=== PATIENT | male | born 1955 | race Caucasian/White ===

== ENCOUNTER 2022-06-23 08:24 | Outpatient (CLI) | payer BC ==
[2022-06-23 08:59] LABS: #Basophils 0.1 10x3/uL (0.0-0.2); #Eosinphils 0.3 10x3/uL (0.0-0.5); #Monocytes 0.6 10x3/uL (0.0-1.1); #Neutrophils 3.7 10x3/uL (1.5-8.4); %Basophils 0.8 % (0.0-2.0); %Eosinophils 5.6 % (0.0-6.0); %Lymphocytes 20.7 % (18.0-47.0); %Monocytes 9.6 % (0.0-10.0); %Neutrophils 62.8 % (40.0-75.0); Hemoglobin 14.1 g/dL (13.5-17.5); Mean Corpuscular HGB CONC 33.8 g/dL (32.0-36.0); Mean Corpuscular Hemoglobin 32.7 pg (27.0-33.0); Mean Corpuscular Volume 96.8 fl (81.2-95.1); Mean Platelet Volume 9.3 fl (7.4-10.4); Platelet Count 254 10x3/uL (150-450); RBC Distribution Width 11.8 % (11.5-14.5); Red Blood Cell (RBC) Count 4.31 10x6/uL (4.32-5.72); White Blood Cell (WBC) Count 5.9 10x3/uL (3.5-10.5)
[2022-06-23 09:20] LABS: ALT (SGPT) 17 U/L (8-55); AST (SGOT) 16 U/L (5-34); Albumin 4.4 g/dL (3.4-4.8); Alkaline Phosphatase 47 U/L (40-110); Anion Gap 15 mmol/L (10-20); BUN (Urea Nitrogen) 16 mg/dL (8.4-25.7); Bilirubin, Total 0.6 mg/dL (0.2-1.2); Calc. Creatinine Clearance 0 mL/min (70-130); Calcium 9.6 mg/dL (7.8-10.44); Carbon Dioxide 30 mmol/L (23-31); Cardiac Risk 2.4 (Less than 4.5); Chloride 100 mmol/L (98-107); Cholesterol 163 mg/dl (< 200 Desired); Estimated GFR 82; Globulin 2.9 g/dL (2.4-3.5); Glucose 108 mg/dL (80-115); HDL Cholesterol 68 mg/dL (>60 Neg Risk); LDL Cholesterol, Calculated 81 mg/dL; Potassium 4.1 mmol/L (3.5-5.1); Protein, Total 7.3 g/dL (5.8-8.1); Sodium 141 mmol/L (136-145); Triglycerides 68 mg/dL (Less than 150)
[2022-06-23 10:06] LABS: Bilirubin Neg (Negative); Blood, Urine Negative (Negative); Clarity Clear (Clear); Glucose, Urine (Dipstick) Normal (Negative); Ketone, Urine Negative (Negative); Leukocyte Negative (Negative); Nitrite Negative (Negative); Protein, Urine (Dipstick) 15 mg/dl (Neg-Trace); Specific Gravity, Urine 1.015 (1.005-1.030); Urobilinogen Normal mg/dL (Less than 2); pH, Urine 6.5 (5.0-9.0)
[2022-06-23 10:33] LABS: Bacteria/HPF 2+ HPF (None Seen); Mucous/LPF 2+ LPF (<2+); RBC/HPF 0-3 HPF (0-3); Squamous Epithelial 0-3 HPF (0-3); WBC/HPF 0-3 HPF (0-3)
[2022-06-23 11:43] LABS: Thyroid Stimulating Hormone 0.8041 uIU/mL (0.35-4.94)
[2022-06-23 13:06] LABS: PSA-Asymptomatic (SCREENING) 0.77 ng/mL (0-4.0)
== END 2022-06-23 08:25 | disposition home or self-care (01) ==
LOC: CSHLAB 08:24
PROVIDERS: ATTEND Family Medicine
DX: Z00.00 Encounter for general adult medical examination without abnormal findings (principal)
CPT/HCPCS: 36415; 80053; 80061; 81001; 84443; 85025; G0103